=== PATIENT | female | born 1955 | race Caucasian/White ===

== ENCOUNTER 2016-09-15 10:57 | Emergency (ER) | payer OTHER ==
[2016-09-15 11:56] LABS: BASO % 0.5 % (0.1-1.2); EOS # 0.1 10_X3_uL (0.0-0.4); EOS % 1.1 % (0.7-5.8); GRAN # 4.3 10_X3_uL (1.6-6.1); GRAN % 51.9 % (34.0-71.1); HEMATOCRIT 40.8 % (34-45); HEMOGLOBIN 13.6 g/dL (11.2-15.7); LYMPH # 2.6 10_X3_uL (1.2-3.7); LYMPH % 31.9 % (19.3-51.7); MEAN CORPUSCULAR HEMOGLOBIN 27.6 pg (27.0-33.0); MEAN CORPUSCULAR HGB CONC 33.3 g/dL (32.0-36.0); MEAN CORPUSCULAR VOLUME 82.9 fL (79-95); MEAN PLATELET VOLUME 10.6 fl (7.5-11.5); MONO # 1.2 10_X3_uL (0.2-0.9); MONO % 14.6 % (4.7-12.5); PLATELET COUNT 237 x10_3/uL (182-369); RED BLOOD COUNT 4.92 x10_6/uL (3.9-5.2); RED CELL DISTRIBUTION WIDTH 14.6 % (11.7-14.4); WHITE BLOOD COUNT 8.3 x10_3/uL (4.0-10.0)
[2016-09-15 12:09] LABS: BLOOD UREA NITROGEN 7 mg/dL (7-18); CALCIUM 9.2 mg/dL (8.7-10.7); CARBON DIOXIDE 25 mmol/L (21-32); CREATININE 0.5 mg/dL (0.6-1.3); GLUCOSE,RANDOM 98 mg/dL (70-99); POTASSIUM 4.5 mmol/L (3.5-5.1); SODIUM 139 mmol/L (136-145)
== END 2016-09-15 15:49 | disposition home or self-care (01) ==
LOC: ER 10:57
PROVIDERS: Emergency Medicine
DX: J06.9 Acute upper respiratory infection, unspecified (principal); R91.8 Other nonspecific abnormal finding of lung field; R05 Cough; J44.9 Chronic obstructive pulmonary disease, unspecified; E03.9 Hypothyroidism, unspecified; M06.9 Rheumatoid arthritis, unspecified; R50.9 Fever, unspecified; J02.9 Acute pharyngitis, unspecified; Z90.710 Acquired absence of both cervix and uterus; F17.210 Nicotine dependence, cigarettes, uncomplicated; Z79.899 Other long term (current) drug therapy; Z79.82 Long term (current) use of aspirin
CPT/HCPCS: 36415; 71020; 71250; 80048; 85025; 87070; 87880; 96372; 99284-25